=== PATIENT | male | born 1985 | race African-American/Black ===

== ENCOUNTER 2017-05-15 22:36 | Inpatient (IN) ==
[2017-05-15] MEDS ORDERED: METHOCARBAMOL 1,000 MG/10 ML VIAL IV STA (23:04)
[2017-05-15] MEDS ORDERED: SODIUM CHLORIDE 0.9% 2,000 ML IV STA (23:04)
--- NOTE | 2017-05-15 23:14 | Emergency Department Note ---
Bandar Billy Brittany, am scribing for, and in the presence of, Seamus Mohamud MD 23:08. Cade Billy Charles R, MD, personally performed the services described in this documentation, ascribed by Roma Portillo in my presence, and it is both accurate and complete 313 . Arrival - Arrival Chief Complaint: Non-Specific Stated Complaint: severe muscle spasms (all over) ED Nursing Triage Note: Pt to triage with c/o sever muscle cramps all over his body. Pt states this started this morning. Pt states he cant lay in the bed due to the sever muscle cramping. Mode of Arrival: Ambulatory Limitations: No Limitations Source: Patient, RN Notes Reviewed Time Seen by Provider: 05/15/17 22:54 - History of Present Illness HPI Narrative: Patient is a 31 y/o black male presenting to the ED with c/o severe muscle cramps diffusely over the entire body which onset this morning. 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 He states that he did become diaphoretic throughout duration in the heat. Patient confirms feeling of muscle twitching. Patient denies any significant medical history. Onset (ago): hour(s) Consistency: constant Allergies/Adverse Reactions: Allergies Allergy/AdvReac Type Severity Reaction Status Date / Time No Known Allergies Allergy Unverified 05/16/17 00:44 Home Medications: Home Medications Medication Instructions Recorded Confirmed Type HYDROcodone/ACETAMIN 10-325 [[place] 1 tablet PO Q6-8H PRN 05/15/17 05/15/17 History 10-325] Lisinopril/Hctz 20-25 [Prinzide 1 tablet PO DAILY 05/15/17 05/15/17 History 20-25] amLODIPine [Norvasc] 2.5 mg PO DAILY 05/15/17 05/15/17 History Review of System - Review of System 12 point system: reviewed and no additional remarkable complaints except as stated - Review of System Constitutional: Present: diaphoresis. Absent: chills, fever Eyes: Absent: vision change Head/Ears/Nose/Throat: Absent: nasal drainage, sore throat Respiratory: Absent: respiratory distress Cardiovascular: Absent: chest pain, palpitations Gastrointestinal: Absent: abdominal pain, nausea, vomiting, diarrhea, constipation Genitourinary male: Absent: urgency, dysuria, frequency Musculoskeletal: Present: other (muscle cramps; muscle twitching). Absent: arm pain, back pain, leg pain, neck pain Skin: Absent: rash Neurological: Absent: headache Psychiatric: Absent: anxiety, depression Medical,Surgical,& Family Hx - Medical History Cardio: History of: Hypertension - Surgical History Orthopedic Surgeries: Surgical HX of;: Spinal Surgery (spinal tap x6) - Social History Smoking Status: Unknown if ever smoked Frequency of Alcohol Use: None Type of Drug Use: None Exam Vital Signs: Vital Signs Temperature 98.8 F 05/15/17 22:42 Pulse Rate 108 H 05/15/17 22:42 Respiratory Rate 18 05/15/17 23:30 Blood Pressure 91/70 05/15/17 22:42 O2 Sat by Pulse Oximetry 94 L 05/15/17 22:42 - General General appearance: alert, in no apparent distress - Head Head exam: Present: atraumatic, normocephalic, normal inspection - Eye Eye exam: Present: normal appearance, PERRL, EOMI - ENT ENT exam: Present: normal exam, normal oropharynx - Neck Neck exam: Present: normal inspection, full ROM, trachea midline - Chest Chest inspection: Present: normal inspection, symmetric chest wall rise - Respiratory Respiratory exam: Present: normal lung sounds bilaterally - Cardiovascular Cardiovascular exam: Present: normal rhythm, tachycardia, normal heart sounds. Absent: regular rate - Abdominal Exam Abdominal exam: Present: soft, normal bowel sounds. Absent: tenderness - Extremities Exam Extremities exam: Absent: normal inspection (obvious muscle twitching) - Back Exam Back exam: Present: normal inspection - Neurological Exam Neurological exam: Present: alert, oriented X3, CN II-XII intact. Absent: motor sensory deficit - Psychiatric Psychiatric exam: Present: normal affect, normal mood - Skin Skin exam: Present: warm, dry Course - Reevaluation(s) Reevaluation #1: Patient feels better still is having muscle cramps Time: 00:47 - Consultations Consultation #1: Hospitalist will admit patient Time: 00:46 Results - Labs CBC & BMP: 05/15/17 23:00 05/15/17 23:00 Lab Results: I have reviewed the patients labs Labs: Laboratory Tests 05/15/17 23:00 WBC 10.9 RBC 5.39 Hgb 15.2 Hct 43.8 MCV 81.3 L Plt Count 285 Neut % (Auto) 77.8 H Lymph % (Auto) 11.7 L Neut # (Auto) 8.5 H Lymph # (Auto) 1.3 L Wayne # (Auto) 1.0 H Laboratory Tests 05/15/17 23:00 Sodium 132 L Potassium 4.0 Chloride 93 L Carbon Dioxide 22 Anion Gap 21.0 H BUN 36 H Creatinine 5.50 H Glucose 155 H ALT 84 H Total Creatine Kinase 365 H CK-MB (CK-2) 3.9 H Troponin I < 0.015 Critical Care Time Critical Care Time: Yes Total Critical Care Time: 60 Disposition Clinical Impression: Acute renal failure, Acute dehydration, Heat exhaustion, Muscle cramps Case discussed with: patient, patient's family Disposition: Still a Patient Condition: Guarded Time of Disposition: 00:47
[2017-05-15] MEDS ORDERED: METHOCARBAMOL 1,000 MG/10 ML VIAL ONE (23:28)
[2017-05-15 23:32] LABS: Basophils % 0.2 % (0.0-0.8); Eosinophils % 0.1 % (0.00-10.9); Hematocrit 43.8 VOL% (42.0-52.0); Hemoglobin 15.2 GM/DL (14.0-18.0); Immature Granulocytes % 0.7 %; Immature Granulocytes Absolute 0.08 #; Lymphocytes # 1.3 10*3/uL (1.4-4.0); Lymphocytes % 11.7 % (21.2-54.2); Mean Corpuscular HGB Conc 34.7 GM/DL (32-36); Mean Corpuscular Hemoglobin 28 PG (27-34); Mean Corpuscular Volume 81.3 FL (87-102); Mean Platelet Volume 9.8 FL (9.6-12.0); Monocytes % 9.5 % (1.7-12.7); Neutrophils # 8.5 10*3/uL (1.4-7.4); Neutrophils % 77.8 % (38.7-73.9); Platelet Count 285 T/CUMM (130-400); Red Blood Count 5.39 MC/CUMM (3.8-5.5); White Blood Count 10.9 T/CUMM (4-12)
[2017-05-16 00:08] LABS: Alanine Aminotransferase 84 U/L (16-61); Albumin 4.8 G/DL (3.4-5.0); Alkaline Phosphatase 78 U/L (45-117); Aspartate Amino Transferase 34 U/L (0-37); Blood Urea Nitrogen 36 MG/DL (7-18); Calcium 9.9 MG/DL (8.5-10.1); Glucose 155 MG/DL (74-106); Magnesium 2.4 MG/DL (1.8-2.4); Osmolality,Calculated 274.5 MOS/KG (273-304); Sodium 132 MMOL/L (136-145); Total Protein 8.3 G/DL (6.4-8.3); Troponin I Only < 0.015 NG/ML (0.00-0.045)
[2017-05-16] MEDS ORDERED: SODIUM CHLORIDE 0.9% 1,000 ML IV STA (00:44)
[2017-05-16] MEDS ORDERED: ONDANSETRON 4 MG/2 ML VIAL IV PRN (01:50)
--- NOTE | 2017-05-16 01:56 | Hospitalist History & Physical ---
Assessment and Plan (1) History of hypertension Status: Acute Current Visit: Yes (2) Acute renal failure Status: Acute Current Visit: Yes (3) Heat exhaustion Status: Acute Current Visit: Yes (4) Muscle cramps Status: Acute Assessment and plan: Our plan for this patient will be admitting him to our service. Will continue with IV hydration. Patient received a total of 3 L in the emergency room. Recheck labs in the morning. Will check renal ultrasound. Hold his blood pressure medicines. Reevaluate patient in the morning adjust plans appropriate Current Visit: Yes History of Present Illness Chief complaint: Muscle cramps History of present illness: Mr. Flowers is a 31 year old male with past medical history significant for hypertension chronic back pain who is in his normal state of health till today. Patient came to the hospital because of muscle spasms. He reports that the pain started this morning. He has been in the out the heat all day. He works paving roads. He came in today in was found to have acute renal failure I was consulted to admit him to the emergency room. Patient denies any history of kidney problems. Home Medications Medication Instructions Recorded Confirmed Type HYDROcodone/ACETAMIN 10-325 [[place] 1 tablet PO Q6-8H PRN 05/15/17 05/15/17 History 10-325] Lisinopril/Hctz 20-25 [Prinzide 1 tablet PO DAILY 05/15/17 05/15/17 History 20-25] amLODIPine [Norvasc] 2.5 mg PO DAILY 05/15/17 05/15/17 History Allergies Allergy/AdvReac Type Severity Reaction Status Date / Time No Known Allergies Allergy Unverified 05/16/17 00:44 Medical,Surgical,& Family Hx - Medical History Cardio: History of: Hypertension - Surgical History Orthopedic Surgeries: Surgical HX of;: Spinal Surgery (spinal tap x6) - Family History Family History: noncontributory (None) - Social History Smoking Status: Unknown if ever smoked Frequency of Alcohol Use: Occasionally Type of Drug Use: None 12 point system: reviewed and no additional remarkable complaints except as stated Exam - Constitutional Vitals: Period Temp Pulse Resp BP Sys/Garcia Pulse Ox Last 24 Hr 98.4 F-98.8 F 108-108 18-18 91-91/70-70 94 - General General appearance: alert, in no apparent distress - Head Head exam: Present: atraumatic, normocephalic, normal inspection - Eye Eye exam: Present: normal appearance, PERRL, EOMI - ENT ENT exam: Present: normal exam, normal oropharynx - Neck Neck exam: Present: normal inspection, full ROM, trachea midline - Chest Chest inspection: Present: normal inspection, symmetric chest wall rise - Respiratory Respiratory exam: Present: normal lung sounds bilaterally - Cardiovascular Cardiovascular exam: Present: Regular rate and rhythm - Abdominal Exam Abdominal exam: Present: soft, normal bowel sounds - Extremities Exam Extremities exam: Absent: normal inspection - Back Exam Back exam: Present: normal inspection - Neurological Exam Neurological exam: Present: alert, oriented X3, CN II-XII intact - Psychiatric Psychiatric exam: Present: normal affect, normal mood - Skin Skin exam: Present: warm, dry Results - Labs CBC & BMP: 05/15/17 23:00 05/15/17 23:00
[2017-05-16] MEDS ORDERED: SODIUM CHLORIDE 0.45% 1,000 ML IV SCH (02:00)
[2017-05-16 02:02] LABS: Apearance,Urine Slightly Hazy (Clear); Bilirubin,Urine Negative (Negative); Blood, Urine Small mg/dL (Negative); Glucose,Urine (UA) Negative (Negative); Granular Casts,Urine 5 /LPF (0-1); Hyaline Casts,Urine 6 /LPF (0-3); Ketones,Urine Negative (Negative); Mucus,Urine Occasional /LPF (Occasional); Nitrite,Urine Negative (Negative); Protein,Urine Negative; RBC,Urine <1 /HPF (0-4); Urine Color Yellow (Yellow); Urine Specific Gravity 1.005 (1.001-1.035); Urine Urobilinogen < 2.0 EU/DL (0.2-1.0); WBC,Urine 1 /HPF (0-6)
[2017-05-16 02:06] LABS: Barbiturates Screen,Urine Negative (Negative); Benzodiazepines Screen,Urine Negative (Negative); Cannabinoid Screen,Urine Negative (Negative); Opiate Screen,Urine Positive (Negative)
[2017-05-16 02:08] LABS: Phencyclidine Screen,Urine Negative (Negative)
--- NOTE | 2017-05-16 07:47 | Ultrasound Report ---
US renal Bilateral Indication: Renal failure Comparison: None. Technique: Using transcutaneous probe, routine renal ultrasound was performed. Ultrasound images were captured and stored. Findings: Right kidney measures 11.4 cm in craniocaudal dimension. Left kidney measures 10.9 cm in craniocaudal dimension. Small calcifications within the mid left renal collecting system are not excluded. There are echogenic foci with posterior shadowing suggested. Neither kidney demonstrates evidence of hydronephrosis or perinephric fluid. Impression: 1. Nephroliths within the left kidney are not excluded. No hydronephrosis or perinephric fluid is present. 05/16/2017 7:31 AM PROCEDURE INTERPRETED AT [facility] DEPARTMENT OF RADIOLOGY Final Report Signed by: Dr. Jf Frost
[2017-05-16 07:51] LABS: Calcium 8.3 MG/DL (8.5-10.1); Osmolality,Calculated 282.7 MOS/KG (273-304); Potassium 4.1 MMOL/L (3.5-5.1)
[2017-05-16] MEDS: SODIUM CHLORIDE 0.45% 1,000 ML IV SCH ×2 (09:17→15:10)
[2017-05-16] MEDS: PANTOPRAZOLE 40 MG TABLET PO SCH (09:18)
[2017-05-16] MEDS: amLODIPine 2.5 MG TABLET PO SCH (10:55)
--- NOTE | 2017-05-16 13:05 | Hospitalist Progress Note ---
Assessment and Plan (1) Acute renal failure Status: Acute Assessment and plan: 1/2 ns at 150 ml/hr, monitor renal function Current Visit: Yes (2) HTN (hypertension) Status: Acute Assessment and plan: norvasc 2.5 mg po daily Current Visit: Yes (3) Heat exhaustion Status: Acute Assessment and plan: resolved Current Visit: Yes (4) Hyponatremia Status: Acute Assessment and plan: resolved with NS Current Visit: Yes Hospitalist: Subjective Interval history: Patient admitted for acute renal failure. Patient was on a diuretic at home and gets dehydrated as he works for an [employer] Outside. Exam - Constitutional Vitals: Period Temp Pulse Resp BP Sys/Garcia Pulse Ox Last 24 Hr 97.7 F-98.8 F 68-108 18-20 91-137/56-73 94-100 Exam: Heart Rate-[RRR] Lungs-[CTAB] GI-[+bs soft, NT] Ext-[no edema] Neuro [Motor 5/5], [alert and oriented times 3] psych [normal mood and affect] General [no acute distress] Results - Labs CBC & BMP: 05/15/17 23:00 05/16/17 07:10 Lab Results: I have reviewed the past 24 hour labs Labs: uds opiates - Diagnostic Findings Procedure: Ultrasound: report reviewed by me (renal )
[2017-05-17] MEDS: SODIUM CHLORIDE 0.45% 1,000 ML IV SCH ×2 (00:40→07:18)
[2017-05-17 06:01] LABS: Alanine Aminotransferase 64 U/L (16-61); Albumin 3.3 G/DL (3.4-5.0); Alkaline Phosphatase 89 U/L (45-117); Aspartate Amino Transferase 35 U/L (0-37); Bilirubin,Total < 0.39 MG/DL (0.2-1.0); Blood Urea Nitrogen 12 MG/DL (7-18); Calcium 8.6 MG/DL (8.5-10.1); Glucose 104 MG/DL (74-106); Osmolality,Calculated 280.3 MOS/KG (273-304); Potassium 4.3 MMOL/L (3.5-5.1); Sodium 141 MMOL/L (136-145)
[2017-05-17] MEDS: amLODIPine 2.5 MG TABLET PO SCH (09:03)
[2017-05-17] MEDS: PANTOPRAZOLE 40 MG TABLET PO SCH (09:03)
[2017-05-17 10:02] VITALS: BP 132/79
--- NOTE | 2017-05-17 10:34 | Discharge Summary ---
Hospital Course - Hospital Course Hospital Course: 31-year-old -[place] male with history of hypertension presents to the emergency room with complaints of intense cramping in his legs. Patient had a BUN of 36, creatinine of 5.5 with a sodium of 132. 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 I have advised him that water would be better. Patient was given aggressive saline resuscitation and his sodium is normalized to 141 his BUN has dropped down to 12 and his creatinine is down to 1. His ALT was 64. Urine drug screen positive for opiates but those were prescribed medicines for him. Renal ultrasound shows normal-sized kidneys with no hydronephrosis. His blood pressure is fairly well controlled but we took him off his lisinopril/ hydrochlorothiazide and continuing his Norvasc but at a higher dose. Patient will be discharged home with no work restrictions. We will have him follow-up with Dr. Dorantes and with his primary doctor in 2 weeks. - Time spent with patient Time with patient DS: Less than 30 minutes (25 min) Diagnosis - Discharge Diagnosis (1) Acute renal failure Status: Acute (2) HTN (hypertension) Status: Acute (3) Heat exhaustion Status: Acute (4) Hyponatremia Status: Acute Discharge Plan - Discharge Data Disposition: Disch To Home/Self Care Condition at Discharge: Stable Discharge Diet: heart healthy Activity: resume usual activities as tolerated Hygiene: no restrictions Weight Bearing at Discharge: full weight bearing Driving: no restrictions Contact your physician if you experience:: fever over 101 - Discharge Medications Changed amLODIPine [Norvasc] 5 mg PO DAILY #60 tablet Discontinued HYDROcodone/ACETAMIN 10-325 [[place] 10-325] 1 tablet PO Q6-8H PRN PRN Reason: Pain Lisinopril/Hctz 20-25 [Prinzide 20-25] 1 tablet PO DAILY - Follow Up or Referral Follow Up: dr fernanda [Other] - 2 Weeks Jonathan Dorantes MD [Physician] - 2 Weeks - Forms/Instructions Additional Discharge Instructions: may return to work on Saturday, continue to hydrate with water not gatorade Exam - Constitutional Vitals: Period Temp Pulse Resp BP Sys/Garcia Pulse Ox Last 24 Hr 97.3 F-98.3 F 62-106 18-20 116-154/62-84 96-99 General appearance: normal weight, no acute distress - Respiratory Respiratory exam: Present: clear to auscultation bilaterally. Absent: rhonchi, wheezes - Cardiovascular Cardiovascular exam: Present: regular rate and rhythm. Absent: systolic murmur - GI/Abdominal GI/Abdominal exam: Present: normal bowel sounds, soft. Absent: tenderness - Extremities Exam Extremities exam: Present: normal inspection, normal capillary refill Discharge Results Procedures and tests throughout hospitalization: Pending Orders 05/18/17 04:00 CMP [Comprehensive Metabolic Panel] IN AM 05/19/17 04:00 CMP [Comprehensive Metabolic Panel] IN AM 05/20/17 04:00 CMP [Comprehensive Metabolic Panel] IN AM Labs on day of discharge: Labs from last 24 hours 05/17/17 05:01 Sodium 141 Potassium 4.3 Chloride 108 H Carbon Dioxide 26 Anion Gap 11.3 BUN 12 D Creatinine 1.00 GFR Calculation 140 BUN/Creatinine Ratio 12.00 Glucose 104 Calculated Osmolality 280.3 Calcium 8.6 Total Bilirubin < 0.39 AST 35 ALT 64 H Alkaline Phosphatase 89 Total Protein 6.0 L Albumin 3.3 L Globulin 2.7 Albumin/Globulin Ratio 1.2 DS: Provider Date of admission: 05/16/17 00:44 Primary care physician: . No PCP Attending physician on admission: Evangelist Trimble MD Discharging clinician: Kasia Goldberg MD
== END 2017-05-17 11:15 | disposition home or self-care (01) | DRG 683 ==
LOC: N.ED 22:36 → SUATTDRO 05-16 00:44 → N.EDINP 05-16 00:44 → N.5E 05-16 01:02
PROVIDERS: ADMIT Internal Medicine; ATTEND Internal Medicine